=== PATIENT | male | born 1960 | race Caucasian/White ===

== ENCOUNTER → 2016-06-06 | Outpatient (CLI) | payer OTHER, BC ==
--- NOTE | 2016-06-06 13:55 | DIAGNOSTIC IMAGING REPORT ---
RIGHT SHOULDER MIN 2 VIEWS ROUTINE CLINICAL HISTORY: Right shoulder pain status post trauma. COMPARISON: None FINDINGS: Alignment of the right shoulder is anatomic. There is no acute fracture. There is moderate AC joint arthrosis and mild glenohumeral joint arthrosis. IMPRESSION: 1. No acute fracture or dislocation of the right shoulder. 2. Moderate osteoarthritis of the right acromioclavicular joint and mild arthritis of the glenohumeral joint. Electronically signed by: Rolando Ding M.D. 06/06/2016 1:52 PM Dictated Date/Time: 06/06/2016 1:50 PM
== END | disposition home or self-care (01) ==
LOC: C.RAD1850 13:36
PROVIDERS: ATTEND Nurse Practitioner Adult Health
DX: M25.511 Pain in right shoulder (principal); S49.91XA Unspecified injury of right shoulder and upper arm, initial encounter; X58.XXXA Exposure to other specified factors, initial encounter; M19.011 Primary osteoarthritis, right shoulder